=== PATIENT | female | born 1965 | race Caucasian/White ===

== ENCOUNTER → 2022-12-27 07:35 | Outpatient (CLI) | payer OTHER, SELFPAY ==
--- NOTE | 2022-12-27 | DI.ECHO.S_ITS ---
[place] [facility]---------+ [facility] +---------+ : : [address] : : : : [id number] : : : : Phone: [phone]+ Echocardiogram Report + + :Name: LESLIE VILLALBA Study Date: 12/27/2022 Height: 70 in : :[facility] ReadingLocation: Weight: 175 lb : : Gender: Female BSA: 2.0 m2 : :: 1965 Age: 57 yrs BP: 119/60 mmHg: :Reason For Study: DYSPNEA ON EXERTION : :Ordering Physician: LINO, : :BRITTNEY Denny Performed By: Sraa Pennington : :Referring: BRITTNEY HUYNH : + + Interpretation Summary The left ventricle is normal in size and wall thickness. The ejection fraction is estimated to be 60-65%. Normal LV systolic function. MV E/A: 1.6 Med Peak E' Gerson: 9.3 cm/sec E/E' med: 10.9. No significant diastolic dysfunction. The right ventricle is normal in size and function. There is mild to moderate mitral regurgitation. There is mild tricuspid regurgitation. The right ventricular systolic pressure is estimated to be at least 25 mmHg based on an estimated right atrial pressure of 3 mm Hg. Mild atherosclerotic plaque(s) in the aortic arch. Procedure: A two-dimensional transthoracic echocardiogram with color flow and Doppler was performed. The study quality was technically adequate. The patient had an echocardiogram, but there is no comparison study available. The patient was in sinus bradycardia with heart rates between 55-64 bpm during the exam. Left Ventricle: The left ventricle is normal in size and wall thickness. There is no thrombus. The ejection fraction is estimated to be 60-65%. The left ventricular ejection fraction is normal. There are no focal wall motion abnormalities. MV E/A: 1.6 Med Peak E' Gerson: 9.3 cm/sec E/E' med: 10.9. No significant diastolic dysfunction. Right Ventricle: The right ventricle is normal in size and function. Atria: The left atrial size is normal. The right atrium is normal in size. There is no Doppler evidence for an interatrial shunt. Mitral Valve: The mitral valve is normal. There is mild to moderate mitral regurgitation. Aortic Valve: The aortic valve is trileaflet. The aortic valve opens well. There is no aortic valve stenosis. No aortic regurgitation is present. Tricuspid Valve: The tricuspid valve is normal. There is mild tricuspid regurgitation. The right ventricular systolic pressure is estimated to be at least 25 mmHg based on an estimated right atrial pressure of 3 mm Hg. Pulmonic Valve: The pulmonic valve leaflets are thin and pliable; valve motion is normal. There is no pulmonic valvular regurgitation. Great Vessels: The aortic root is normal size. The dimensions of the ascending aorta are normal. Mild atherosclerotic plaque(s) in the aortic arch. The IVC is of normal diameter and collapses greater than 50% with a sniff. This suggests a low right atrial pressure of 3 mm Hg. Pericardium/ Pleura There is no pericardial effusion. There is no pleural effusion. MMode/2D Measurements & Calculations LVIDd: 4.2 cm LVOT diam: 2.1 cm LVIDs: 2.7 cm Ao root diam: 2.9 cm FS: 35.9 % asc Aorta Diam: 3.2 cm IVSd: 0.81 cm Ao Arch Diam (Prox Trans): 2.5 cm LVPWd: 0.94 cm LV chauhan. diameter/BSA (cm/m^2): 2.1 LV sys. diameter/BSA (cm/m^2): 1.3 LA A2 area: 13.4 cm2 RA long axis: 4.5 cm LA A4 area: 17.0 cm2 RA area: 14.9 cm2 LA length (vol): 4.9 cm RA vol: 41.7 ml LA vol: 39.3 ml RA : 21.1 ml/m2 LA vol index: 19.9 ml/m2 IVC diam: 1.3 cm RVD1 (basal): 3.0 cm RVD2 (mid): 2.2 cm TAPSE: 2.3 cm Doppler Measurements & Calculations Ao V2 max: 108.1 cm/sec LVOT Max Gerson: 103.1 cm/sec Ao V2 mean: 79.0 cm/sec LV V1 max P.2 mmHg Ao max P.7 mmHg LV V1 VTI: 26.6 cm Ao mean P.8 mmHg POWER(I,D): 3.2 cm2 Ao V2 VTI: 28.0 cm POWER(V,D): 3.2 cm2 sev ratio: 0.95 POWER indexed to BSA (cm^2/m^2): 1.6 MV E max gerson: 102.4 cm/sec TR max gerson: 249.1 cm/sec MV A max gerson: 64.2 cm/sec TR max P.8 mmHg MV E/A: 1.6 PA V2 max: 80.2 cm/sec Med Peak E' Gerson: 9.3 cm/sec PA V2 mean: 59.2 cm/sec E/E' med: 10.9 PA mean P.5 mmHg Lat Peak E' Gerson: 10.1 cm/sec PA pr(Accel): 22.5 mmHg E/E' lat: 10.2 E/e' average: 10.6 MV dec time: 0.23 sec SV(LVOT): 90.1 ml Reading Physician:06:25 PM
== END ==
PROVIDERS: PCP Internal Medicine Geriatric Medicine; Referring Provider Internal Medicine Geriatric Medicine; Visit Provider Internal Medicine Geriatric Medicine
DX: I08.1 Rheumatic disorders of both mitral and tricuspid valves (principal); I20.1 Angina pectoris with documented spasm; I70.0 Atherosclerosis of aorta; R06.09 Other forms of dyspnea
CPT/HCPCS: 93306

== ENCOUNTER → 2024-03-06 06:51 | Outpatient (CLI) | payer OTHER, SELFPAY ==
--- NOTE | 2024-03-06 06:52 | DI.ECHO.S_ITS ---
[place] [facility]---------+ [facility] : : [address] : [address] : : [id number] : : Phone: [phone] Echocardiogram Report + + :Name: LESLIE VILLALBA Study Date: 03/06/2024 Height: 69 in : :Hospital ReadingLocation: Weight: 180 lb : : Gender: Female BSA: 2.0 m2 : :: 1965 Age: 59 yrs BP: 119/64 mmHg: :Reason For Study: NONRHEUMATIC MITRAL VALVE INSUFFICIENCY : :Ordering Physician: TOBY, : :CYRIL Performed By: Edilberto Spear : :Referring: CYRIL LUIS : + + Interpretation Summary A two-dimensional transthoracic echocardiogram with color flow and Doppler was performed in limited views only. The ejection fraction is estimated to be 60-65%. There is mild mitral regurgitation. The right ventricular systolic pressure is estimated to be at least 28 mmHg based on an estimated right atrial pressure of 3 mm Hg. Procedure: A two-dimensional transthoracic echocardiogram with color flow and Doppler was performed in limited views only. The study quality was technically adequate. Comparison is made with the echocardiogram of 12/27/2022. The patient was in normal sinus rhythm during the exam. The heart rate ranged between 60-69 bpm during the study. Left Ventricle: The left ventricle is normal in size and wall thickness. The ejection fraction is estimated to be 60-65%. There are no obvious focal wall motion abnormalities noted but poor endocardial definition reduces the sensitivity for the detection of such. Mitral Valve: The mitral valve is normal in structure and function. There is no mitral valve stenosis. There is mild mitral regurgitation. Aortic Valve: The aortic valve is trileaflet. Tricuspid Valve: The tricuspid valve is normal in structure and function. There is no tricuspid stenosis. There is mild tricuspid regurgitation. The right ventricular systolic pressure is estimated to be at least 28 mmHg based on an estimated right atrial pressure of 3 mm Hg. Pulmonic Valve: The pulmonic valve is not well visualized. Great Vessels: The IVC is of normal diameter and collapses greater than 50% with a sniff. This suggests a low right atrial pressure of 3 mm Hg. Pericardium/ Pleura There is no pericardial effusion. There is no pleural effusion. MMode/2D Measurements & Calculations LVIDd: 4.8 cm Ao Arch Diam (Prox Trans): 2.6 cm LVIDs: 3.2 cm FS: 33.7 % IVSd: 0.73 cm LVPWd: 1.0 cm LV chauhan. diameter/BSA (cm/m^2): 2.4 LV sys. diameter/BSA (cm/m^2): 1.6 IVC diam: 1.7 cm Doppler Measurements & Calculations MV E max syeda: 99.0 cm/sec TR max syeda: 250.6 cm/sec MV A max syeda: 64.6 cm/sec TR max P.1 mmHg MV E/A: 1.5 MV dec time: 0.20 sec Reading Physician:MELISSA
== END ==
PROVIDERS: PCP Internal Medicine Geriatric Medicine; Referring Provider Internal Medicine; Visit Provider Internal Medicine
DX: I08.1 Rheumatic disorders of both mitral and tricuspid valves (principal)
CPT/HCPCS: 93306